=== PATIENT | male | born 1985 | race American Indian/Alaskan Native ===

== ENCOUNTER → 2020-08-11 13:16 | Outpatient (CLI) | payer BC, OTHER, SELFPAY ==
--- NOTE | 2020-08-11 | DI.CT.S_ITS ---
PROCEDURE: CT ABDOMEN PELVIS WO CON INDICATIONS: Hematuria, unspecified TECHNIQUE: Noncontrast 5 mm thick sections acquired from the diaphragms to the symphysis. 5 mm coronal and sagittal reformats were then performed. For radiation dose reduction, the following was used: automated exposure control, adjustment of mA and/or kV according to patient size. COMPARISON: None. FINDINGS: Image quality: Excellent. ABDOMEN: Lung bases: Lung bases are clear. Heart size is normal. Solid organs: Liver is normal in size. Numerous hepatic cysts are present consistent with the clinical history of hepatic renal polycystic syndrome. Gallbladder appears normal . Pancreas is normal in contours. Spleen is normal in size. No adrenal nodules. Kidneys are normal in size, without hydronephrosis or nephrolithiasis. Peritoneum and bowel: Unenhanced bowel loops demonstrate normal wall thickness and caliber. No free fluid or air. Nodes and vessels: No retroperitoneal or mesenteric adenopathy by size criteria. Aorta and inferior vena cava are normal in caliber. Miscellaneous: No ventral hernias. PELVIS: Genitourinary: Bladder wall thickness is normal. Miscellaneous: No inguinal hernias or adenopathy. Bones: No suspicious bony lesions. No vertebral body compression fractures. IMPRESSION: Multiple renal and hepatic cysts, none of which appear complex. No hydronephrosis or nephrolithiasis is seen. A source of hematuria is not found. Dictated by: Harvey Hubbard M.D. on 08/11/2020 at 13:57 Approved by: Harvey Hubbard M.D. on 08/11/2020 at 13:58
== END ==
PROVIDERS: Referring Provider Specialist; Visit Provider Specialist
DX: R31.9 Hematuria, unspecified (principal); N28.1 Cyst of kidney, acquired; K76.89 Other specified diseases of liver
CPT/HCPCS: 74176

== ENCOUNTER → 2020-08-26 09:48 | Outpatient (CLI) | payer BC, OTHER, SELFPAY ==
[2020-08-26 10:28] LABS: Cholesterol 203 mg/dL (140-199); HDL Cholesterol 25 mg/dL (40-60); Triglycerides 444 mg/dL (35-150)
[2020-08-26 10:29] LABS: BUN Creatinine Ratio 17.6 (6-22); Blood Urea Nitrogen 19 mg/dL (9-20); Carbon Dioxide 26 mmol/L (22-32); Chloride 104 mmol/L (98-107); Estimated Glomerular Filt Rate > 60.0 mL/min (>60); Glucose 95 mg/dL (70-100); HEMOLYSIS < 15 (0-50); Potassium 4.5 mmol/L (3.4-5.1); Sodium 138 mmol/L (137-145)
[2020-08-26 10:30] LABS: Hemoglobin A1C% w Est Avg Glu 5.4 % (4.0-6.0)
[2020-08-26 11:26] LABS: TSH w/ Reflex to FT4 1.04 uIU/mL (0.47-4.68)
== END ==
PROVIDERS: Specialist; PCP Family Medicine; Referring Provider Family Medicine; Visit Provider Family Medicine
DX: I10 Essential (primary) hypertension (principal); F41.8 Other specified anxiety disorders; R73.9 Hyperglycemia, unspecified; R94.4 Abnormal results of kidney function studies
CPT/HCPCS: 36415; 80048; 80061; 83036; 84443

== ENCOUNTER → 2020-09-08 09:01 | Outpatient (CLI) | payer BC, OTHER, SELFPAY ==
[2020-09-08 09:24] LABS: COVID19 -Nasal RAPID Negative (Negative)
== END ==
PROVIDERS: PCP Family Medicine; Visit Provider Specialist
DX: Z20.822 Contact with and (suspected) exposure to COVID-19 (principal)
CPT/HCPCS: 87635; C9803

== ENCOUNTER 2020-09-10 06:21 | Day surgery (SDC) | payer BC, OTHER, SELFPAY ==
[2020-09-10] VITALS (13 sets, daily range): BP systolic 91–122; BP diastolic 46–87; PULSE 46–78; RESP 12–18; TEMP 36.4–37.1; O2SAT 94–98; BMI 35.5
--- NOTE | 2020-09-10 | PATH_ITS ---
[facility] Accession Number: [id number] . 01 Material submitted: . bladder - LEFT BLADDER FLOOR . 02 Diagnosis: Left Bladder Floor, TURBT: Papillary urothelial carcinoma, low grade, noninvasive; see cancer case summary. . . CANCER CASE SUMMARY - URINARY BLADDER . Procedure: Transurethral resection of bladder (TURBT). Tumor site: Left bladder floor. Histologic type: Papillary urothelial carcinoma, noninvasive. Histologic grade: Low grade. Tumor configuration: Papillary. Muscularis propria presence: No muscularis propria identified. Lymphovascular invasion: Not identified. Tumor extension: Noninvasive papillary carcinoma. MRV 09/15/2020 1303 Local . 02 Comment: As part of routine quality assurance calibrator, Dr. Baxter has reviewed this case and agrees with the diagnosis of low-grade papillary urothelial carcinoma. . 02 Electronically signed: . Gutierrez Gonzalez MD, PhD, Pathologist NPI- [id number] . 01 Gross description: . The specimen is received in formalin, labeled left bladder floor and consists of three haro-pink to haro-white fragments of soft tissue measuring 0.7 x 0.6 x 0.2 cm in aggregate. The specimen is entirely submitted in cassette A1. ([id number]) /MRV 09/14/2020 1604 Local . 02 Pathologist provided ICD-10: C67.9 . 02 CPT . 975007 Performed at: 01 [facility] [address] [facility], [place], [place] [id number] MD Lorne Canales MD Phone: [phone] Performed at: 02 [facility] [address] [place], [place] [id number] MD Carolyn Pabon MD Phone: [phone]
--- NOTE | 2020-09-10 07:28 | PM.PREOP ---
Pre-operative Note Interval Note History & Physical reviewed/Exam performed by Physician: Yes Changes to H&P: No
--- NOTE | 2020-09-10 07:36 | SUR.OPER ---
Lithotomy on padded OR bed, head on pillow, arms secured on padded arm boards at <90 degrees abduction. Legs secured in padded yellow fins stirrups.
[2020-09-10] MEDS: LACTATED RINGERS 500 ML 25 ML IV (07:42)
[2020-09-10] MEDS: CEFAZOLIN VIAL 3 GM in SODIUM CHLORIDE 0.9% 100 ML 200 ML IV (07:53)
[2020-09-10] MEDS: BELLADONNA/OPIUM SUPPOSITORIES 1 EACH PR (08:06)
[2020-09-10] MEDS: WATER FOR INJECTION,STERILE 20 ML, mitoMYcin 20 MG INTRAVESIC (08:12)
--- NOTE | 2020-09-10 08:29 | P.OP_ITS ---
Operative Date/Time/Diagnoses Date of procedure: 09/10/20 Time of procedure: 08:29 Pre-op diagnosis: Bladder neoplasm Post-op diagnosis: same Procedure & Clinicians Procedure: 1. cystoscopy and transurethral resection of bladder tumor 2. cystoscopy and instillation mitomycin-C (20 mg) Same procedure as scheduled: Yes Indications: papillary neoplasm left bladder floor Surgeon: Genia Hu Click Yes if Unassisted: Yes Anesthesia Type: General Operative Notes Findings: 1. Urethra -normal 2. external sphincter - coapted 3. prostate - 3+ cm length with mild lateral lobe hyperplasia. 4. bladder- trace trabeculation. Normal ureteral orifices bilaterally. There is a multi lobular papillary neoplasm located at the left posterior- lateral floor. Closure Type: not applicable Specimen(s): other ( bladder neoplasm) Applied: catheter ( 22 Portuguese silicone catheter) Estimated Blood Loss (mL): 0 Blood products transfused: none Procedure in detail: the patient was positioned supine and administered general anesthesia. The lower abdomen, genitalia, and groin were prepped and draped in sterile fashion. The resectoscope was then advanced into urethra meatus and advanced proximally with the findings as described above. The resectoscope was then fitted with cold cup biopsy and the tumor was excised using cold resection. The samples were submitted to pathology for routine gross microscopic examination. The resectoscope was then fitted with the button electrode and the bladder base and periphery were cauterized for hemostasis. The bladder was then left partially filled resectoscope was removed. A 22 Portuguese silicone Christensen catheter was then inserted, the balloon inflated 10 cc, and the bladder contents drained. 20 mg of mitomycin C were then instilled into the bladder and a catheter plug was left in place for anticipated 2 hour retention and recovery. Complications: none Post-operative Condition: stable Disposition: PACU Plan for aftercare: Discharge home
[2020-09-10] MEDS: fentaNYL 100 MCG/2 ML INJ IV ×5 (08:34→09:14)
[2020-09-10] MEDS: OXYCODONE/ACETAMINOPHEN 5/325 TABLET 1 TAB PO ×2 (08:42→09:09)
--- NOTE | 2020-09-10 11:47 | SUR.PHASEII ---
pt turned according to schedule for mitomycin. morgan drained and placed in yellow chemo container after it was removed. pt aware that may experience pain with urination and to drink plenty of fluids. will contact MD if any issues. 200 ml of urine was removed with morgan. PIV removed without issue. d/c instructions provided to pt. pt left in w/c with RN escort to car with his .
== END 2020-09-10 10:47 | disposition home or self-care (01) ==
PROVIDERS: PCP Family Medicine; Referring Provider Family Medicine; Visit Provider Specialist
PROC: 0TBB8ZZ Excision of Bladder, Via Natural or Artificial Opening Endoscopic (ICD-10-PCS; CPT 52234; principal; 2020-09-10 07:45)
DX: C67.9 Malignant neoplasm of bladder, unspecified (principal); I10 Essential (primary) hypertension; N40.0 Benign prostatic hyperplasia without lower urinary tract symptoms; F32.9 Major depressive disorder, single episode, unspecified; F41.9 Anxiety disorder, unspecified; E78.5 Hyperlipidemia, unspecified
CPT/HCPCS: 52234; 82962; J0690; J1100; J2250; J2405; J2704; J3010; J9280

== ENCOUNTER 2020-10-26 18:50 | Emergency (ER) | payer BC, OTHER, SELFPAY ==
[2020-10-26 19:06] VITALS: BP 138/85; PULSE 98; RESP 18; TEMP 36; O2SAT 100; BMI 33.2
[2020-10-26 20:03] LABS: Appearance Urine UA SL CLOUDY; Bilirubin Urine UA NEGATIVE (NEGATIVE); Color Urine UA YELLOW; Glucose Urine UA NEGATIVE (Negative); Ketones Urine UA NEGATIVE (NEGATIVE); Leukocyte Esterase Urine UA TRACE (NEGATIVE); Nitrite Urine UA NEGATIVE (Negative); Occult Blood Urine UA 3+ (Negative); Protein Urine UA 2+ (Negative); Specific Gravity Urine UA 1.025 (1.000-1.035); Urobilinogen Urine UA 0.2 E.U./dL (0.2)
[2020-10-26 20:04] LABS: Add Manual Diff / Slide Review NO; Basophils Absolute Auto 0 /uL (0-100); Basophils Percent Auto 0.5 % (0-2); Eosinophils Absolute Auto 200 /uL (0-450); Eosinophils Percent Auto 2.5 % (2-4); Hematocrit 44.1 % (41-53); Hemoglobin 14.9 g/dL (13.5-17.5); Lymphocytes Absolute Auto 2900 /uL (1100-4500); Lymphocytes Percent Auto 29.7 % (25-40); Mean Corpuscular HGB Conc 33.9 % (30-36); Mean Corpuscular Hemoglobin 29.6 PG (26-34); Mean Corpuscular Volume 87.5 fL (80-100); Monocytes Absolute Auto 500 /uL (0-900); Monocytes Percent Auto 5.1 % (3-14); Neutrophils Absolute Auto 6200 /uL (1500-7000); Neutrophils Percent Auto 62.2 % (50-75); Platelet Count 299 X10^3/uL (150-400); Red Blood Cell Count 5.04 X10^6/uL (4.5-5.9); White Blood Cell Count 9.9 X10^3/uL (4.5-11.0)
[2020-10-26] MEDS: SODIUM CHLORIDE 0.9% 1,000 ML 1000 ML IV (20:04)
[2020-10-26] MEDS: KETOROLAC 30 MG/ML VIAL 15 MG IV (20:04)
[2020-10-26 20:16] LABS: Bacteria Urine Occasional (0-1); Culture Indicated Urine Specimen Cultured; Mucus Urine 1+ (Negative); RBC Urine >100/HPF (0-5/HPF); Squamous Epithelial Cell Urine 1-5 /HPF (0-5/HPF); WBC Urine 5-10/HPF (0-5/HPF)
[2020-10-26 20:17] LABS: Alanine Aminotransferase 23 IU/L (<50); Albumin 4.5 g/dL (3.5-5.0); Albumin Globulin Ratio 1.5 (1.0-2.8); Alkaline Phosphatase 72 U/L (38-126); Aspartate Aminotransferase 25 IU/L (17-59); BUN Creatinine Ratio 15.4 (6-22); Bilirubin Total 0.3 mg/dL (0.2-1.3); Blood Urea Nitrogen 20 mg/dL (9-20); Calcium 9.2 mg/dL (8.4-10.2); Carbon Dioxide 21 mmol/L (22-32); Chloride 106 mmol/L (98-107); Estimated Glomerular Filt Rate > 60.0 mL/min (>60); Globulin 3.1 g/dL (1.7-4.1); Glucose 136 mg/dL (70-100); HEMOLYSIS < 15 (0-50); Potassium 4.3 mmol/L (3.4-5.1); Sodium 139 mmol/L (137-145); Total Protein 7.6 g/dL (6.3-8.2)
--- NOTE | 2020-10-26 20:28 | PC.NURSE ---
Bladder and urethra pain when urinating; recent bladder cancer.
--- NOTE | 2020-10-26 21:18 | ED.GENADULT ---
HPI - General Adult General Chief complaint: Urogenital-Male Stated complaint: SEVERE BLADDER PAIN Time Seen by Provider: 10/26/20 19:36 Source: patient Mode of arrival: Ambulatory Limitations: no limitations History of Present Illness HPI narrative: 35-year-old gentleman with a history of polycystic kidney disease, high blood pressure and is 6 weeks post TUR bladder cancer removal. Over last 2 weeks he has been having increasing dysuria and urgency. He was seen at an urgent care clinic started on Septra urine culture was done and returns unremarkable. He was contacted and told he could stop his antibiotics. Continues to have increasing dysuria, urgency and today is noticing hematuria and small bits of tissue debris in his urine. He describes his bladder as ?holding a hot volume of acid?. He does not describe fevers, chills, no vomiting or diarrhea. Does not describe flank pain. Related Data Home Medications Medication Instructions Recorded Confirmed multivitamin 1 tab PO DAILY 09/10/20 10/14/20 omega-3 fatty acids 1,000 mg PO DAILY 09/10/20 10/14/20 Previous Rx's Medication Instructions Recorded bupropion HCl 100 mg tablet,12 hr 100 mg PO BID #180 ea 08/26/20 sustained-release lisinopril 20 mg tablet 20 mg PO DAILY #90 tab 08/26/20 atomoxetine 40 mg capsule 40 mg PO DAILY #90 cap 10/14/20 trazodone 50 mg tablet 100 mg PO BEDTIME PRN #120 tab 10/14/20 oxybutynin chloride 10 mg PO DAILY #30 tab 10/26/20 oxycodone-acetaminophen 1 tab PO Q6H PRN #14 tab 10/26/20 phenazopyridine [Pyridium] 200 mg PO TID #6 tab 10/26/20 Allergies Allergy/AdvReac Type Severity Reaction Status Date / Time methylphenidate AdvReac Unknown Feel like Verified 10/14/20 13:48 [From [email or web address]] a dharmesh Review of Systems Review of Systems Narrative: Remainder of complete review of systems is otherwise unremarkable except for that included in the HPI. Patient History Medical History ADHD (~2004) Ankle pain (~2005) Autosomal dominant polycystic kidney disease Bone spur of right ankle Chicken pox (~1992) Chronic back pain (~2005) Depression Depression with anxiety (~2004) Foot pain (~2003) Former smoker Headache (~2004) Hearing loss (~2004) Hematuria Hyperlipidemia Hypertension (~2015) Malignant neoplasm of bladder Migraines (~2004) Polycystic kidney, adult type (~2006) Shoulder pain (~2013) Sleep apnea Vertigo (~2004) Surgical History Anesthesia History of ankle surgery History of eyelid surgery (~2010) Family History Father PKD (polycystic kidney disease) Mother Hypertension Sister PKD (polycystic kidney disease) Sister PKD (polycystic kidney disease) Grandmother Sepsis Grandmother PKD (polycystic kidney disease) Social History marital status: household members: spouse Smoking Status: Former smoker alcohol intake: never caffeine: Yes Smoking Status: Former smoker alcohol intake frequency: holidays/special occasions only Substance Use Type: does not use Exam Narrative Exam Narrative: General: Healthy appearing, in no acute distress. Able to give a complete and coherent history. Well-nourished well-developed HEENT: Moist mucous membranes, normal sclera with reactive pupils, Neck: supple Respiratory: Lungs are clear to auscultation, no wheezing no rales no rhonchi. Full and symmetrical air movement Cardiac: Regular rate and rhythm no murmurs no bruits Abdomen: Soft, suprapubic tenderness, no rebound or guarding, good bowel tones, no flank pain Skin: Warm and dry, no rashes Neurologic: Grossly neurologically intact with no obvious asymmetries or abnormalities Extremities: No trauma, well perfused Psych: Cooperative, appropriate insight and affect Initial Vital Signs Initial Vital Signs: Vital Signs Temperature 96.8 F L 10/26/20 19:06 Pulse Rate 98 H 10/26/20 19:06 Respiratory Rate 18 10/26/20 19:06 Blood Pressure 138/85 10/26/20 19:06 Pulse Oximetry 100 10/26/20 19:06 Course Orders Ordered: ED Orders 10/26/20 19:46 Urinalysis and Microscopic Stat Urine Culture Stat 10/26/20 19:56 Complete Blood Count AUTO DIFF Stat Comprehensive Metabolic Panel Stat Oxybutynin Chloride (Oxybutynin 5 Mg Er Tab) 10 mg PO DAILY LIEN Discontinued Medications Sodium Chloride (Normal Saline 0.9%) 1,000 mls @ 1,000 mls/hr IV BOLUS ONE Stop: 10/26/20 20:42 Last Infusion: 10/26/20 21:05 Dose: 0 mls/hr Documented by: Admin: 10/26/20 20:04 Dose: 1,000 mls/hr Documented by: NUPUR Ketorolac Tromethamine (Ketorolac 30 Mg/Ml Vial) 15 mg IV NOW ONE Stop: 10/26/20 19:44 Last Admin: 10/26/20 20:04 Dose: 15 mg Documented by: NUPUR Oxycodone/Acetaminophen (Oxycodone/Apap 5/325 Prepack) 1 bottle MISC SEEINSTR ONE Stop: 10/26/20 21:45 Phenazopyridine HCl (Phenazopyridine 100 Mg Tablet) 200 mg PO NOW ONE Stop: 10/26/20 21:45 Vital Signs Vital signs: Vital Signs - 8 hr 10/26/20 19:06 Temperature 96.8 F L Pulse Rate 98 H Respiratory Rate 18 Blood Pressure 138/85 Pulse Oximetry 100 Medical Decision Making Medical Records Medical records reviewed: Yes I reviewed the patient's medical records. Lab Data Lab results reviewed: Yes I reviewed the patient's lab results. Result diagrams: 10/26/20 19:56 10/26/20 19:56 Labs: Lab Results 10/26/20 10/26/20 10/26/20 Range/Units 19:46 19:56 19:56 WBC 9.9 (4.5-11.0) X10^3/uL RBC 5.04 (4.5-5.9) X10^6/uL Hgb 14.9 (13.5-17.5) g/dL Hct 44.1 (41-53) % MCV 87.5 (80-100) fL MCH 29.6 (26-34) PG MCHC 33.9 (30-36) % RDW 13.0 (11.6-14.8) % Plt Count 299 (150-400) X10^3/uL Neut % (Auto) 62.2 (50-75) % Lymph % (Auto) 29.7 (25-40) % [place] % (Auto) 5.1 (3-14) % Eos % (Auto) 2.5 (2-4) % Baso % (Auto) 0.5 (0-2) % Neut # (Auto) 6200 (2466-2227) /uL Lymph # (Auto) 2900 (6859-1099) /uL [place] # (Auto) 500 (0-900) /uL Eos # (Auto) 200 (0-450) /uL Baso # (Auto) 0 (0-100) /uL Sodium 139 (137-145) mmol/L Potassium 4.3 (3.4-5.1) mmol/L Chloride 106 (98-107) mmol/L Carbon Dioxide 21 L (22-32) mmol/L BUN 20 (9-20) mg/dL Creatinine 1.30 H (0.66-1.25) mg/dL Estimated GFR > 60.0 (>60) mL/min BUN/Creatinine Ratio 15.4 (6-22) Glucose 136 H (70-100) mg/dL Calcium 9.2 (8.4-10.2) mg/dL Total Bilirubin 0.3 (0.2-1.3) mg/dL AST 25 (17-59) IU/L ALT 23 (<50) IU/L Alkaline Phosphatase 72 (38-126) U/L Total Protein 7.6 (6.3-8.2) g/dL Albumin 4.5 (3.5-5.0) g/dL Globulin 3.1 (1.7-4.1) g/dL Albumin/Globulin Ratio 1.5 (1.0-2.8) Urine Color Yellow Urine Appearance Sl cloudy Urine pH 6.0 (4.5-8.0) Ur Specific [place]ahan 1.025 (1.000-1.035) Urine Protein 2+ H (Negative) Urine Glucose (UA) Negative (Negative) g/dL Urine Ketones Negative (NEGATIVE) Urine Occult Blood 3+ H (Negative) Urine Nitrate Negative (Negative) Urine Bilirubin Negative (NEGATIVE) Urine Urobilinogen 0.2 (0.2) E.U./dL Ur Leukocyte Esterase Trace H (NEGATIVE) Urine RBC >100/hpf H (0-5/HPF) Urine WBC 5-10/hpf H (0-5/HPF) Ur Squamous Epith Cells 1-5 /hpf (0-5/HPF) Urine Bacteria Occasional (0-1) (None) Urine Mucus 1+ H (Negative) Ur Culture Indicated? Specimen cultured MDM Narrative Medical decision making narrative: 35-year-old gentleman with continued dysuria, no hematuria and tissue being passed. On 09/10 he had cystoscopic surgery with removal of a multi lobular papillary neoplasm located at the left posterior- lateral floor. Recent urinalysis did not culture a urinary tract infection and today's urinalysis shows hematuria only. Slight increase in creatinine from 1-1.3. Spoke with Dr. Tobin, urologist on-call. Given the lack of urinary tract infection, no evidence of sepsis his recommendation was to try an anticholinergic to help with the bladder spasms such as oxybutynin and felt that 3 days of Pyridium trial would be acceptable. His recommendation was to not do any additional imaging studies at this point an ask the patient to follow-up with Dr. Hu by phone tomorrow morning. Discharge Plan Departure Patient Disposition: Home Clinical Impression: Spastic dysuria Hematuria Qualifiers: Hematuria type: gross Qualified Code(s): R31.0 - Gross hematuria Bladder cancer Qualifiers: Bladder location: posterior wall Qualified Code(s): C67.4 - Malignant neoplasm of posterior wall of bladder Instructions: DI for Dysuria -- Adult Activity Restrictions/Additional Instructions: Thank you for coming in today Your lab work was reassuring. There is no evidence of infection. Your urine sample does show blood but does not show white blood cells or bacteria. As you are already on a 7 day course of Septra, please go ahead and complete this. I have spoken with Dr. Tobin, urology on-call for Dr. Hu. He recommended trying oxybutynin daily as an anti spasmodic, agreed that trying 3 days of pretty am to help control the pain was also reasonable and recommended follow-up with Dr. Hu as soon as possible. I will also give you a brief course of Percocet to help with the severe pain so you are at least able to get some sleep All prescriptions have been electronically sent to [facility] in [place] If you find that you can not void at all please feel free to return to the ER. Please contact Dr. Hu is office tomorrow. Prescriptions: New oxybutynin chloride 10 mg tablet extended release 24hr 10 mg PO DAILY Qty: 30 RF: 0 phenazopyridine [Pyridium] 200 mg tablet 200 mg PO TID Qty: 6 RF: 0 oxycodone-acetaminophen 5-325 mg tablet 1 tab PO Q6H PRN (Reason: pain) Qty: 14 RF: 0 No Action lisinopril 20 mg tablet 20 mg PO DAILY Qty: 90 RF: 3 bupropion HCl [Wellbutrin SR] 100 mg tablet sustained-release 12 hr 100 mg PO BID Qty: 180 RF: 0 atomoxetine 40 mg capsule 40 mg PO DAILY Qty: 90 RF: 3 trazodone 50 mg tablet 100 mg PO BEDTIME PRN (Reason: insomnia) Qty: 120 RF: 3 multivitamin Tablet 1 tab PO DAILY RF: 0 omega-3 fatty acids Capsule 1,000 mg PO DAILY RF: 0 Referrals: Hussein Navarro MD [Primary Care Provider] - Genia Hu MD [Physician] -
[2020-10-26] MEDS: OXYCODONE/APAP 5/325 PREPACK 1 BOTTLE MISC (22:09)
[2020-10-26] MEDS: PHENAZOPYRIDINE 100 MG TABLET 200 MG PO (22:10)
[2020-10-26] MEDS: OXYBUTYNIN 5 MG ER TAB 10 MG PO (22:10)
[2020-10-26 22:24] VITALS: BP 125/91; PULSE 80; RESP 20; TEMP 36.9; O2SAT 98
== END 2020-10-26 22:29 | disposition home or self-care (01) ==
PROVIDERS: Emergency Provider Emergency Medicine; PCP Family Medicine
DX: R30.0 Dysuria (principal); R31.0 Gross hematuria; C67.4 Malignant neoplasm of posterior wall of bladder
CPT/HCPCS: 36415; 51798; 80053; 81001; 81003; 85025; 87086; 96361; 96374; 99284; J1885

== ENCOUNTER → 2020-11-02 10:46 | Outpatient (CLI) | payer BC, OTHER, SELFPAY | PROVIDERS: PCP Family Medicine; Visit Provider Specialist | DX: N39.0 Urinary tract infection, site not specified (principal); R39.9 Unspecified symptoms and signs involving the genitourinary system; C67.4 Malignant neoplasm of posterior wall of bladder | CPT/HCPCS: 51798; 81002; 87086; 99214 ==

== ENCOUNTER → 2021-01-06 09:50 | Outpatient (CLI) | payer BC, OTHER, SELFPAY ==
[2021-01-06 13:37] LABS: COVID19 -Nasal RAPID Negative (Negative)
== END ==
PROVIDERS: PCP Family Medicine; Visit Provider Specialist
DX: Z20.822 Contact with and (suspected) exposure to COVID-19 (principal)
CPT/HCPCS: 87635; C9803

== ENCOUNTER 2021-01-07 10:29 | Day surgery (SDC) | payer BC, OTHER, SELFPAY ==
[2021-01-07] VITALS (10 sets, daily range): BP systolic 108–135; BP diastolic 79–93; PULSE 75–90; RESP 14–22; TEMP 36.1–36.7; O2SAT 94–98; BMI 34.9
--- NOTE | 2021-01-07 | PATH_ITS ---
[facility] Accession Number: [id number] . 01 Material submitted: . PART A: colon - CECUM PART B: small bowel - TERMINAL ILEUM PART C: colon - ASCENDING COLON PART D: body - 20 CM . 01 Clinical history: . SDC . 02 Diagnosis: A. Cecum: Colonic mucosa with no significant diagnostic abnormality. Negative for active inflammation, granulomas, dysplasia, and malignancy. . B. Terminal Ileum: Small bowel mucosa with focal active inflammation, non-specific. Negative for granulomas, dysplasia, and malignancy. . C. Ascending Colon: Colonic mucosa with no significant diagnostic abnormality. Negative for active inflammation, granulomas, dysplasia, and malignancy. . D. 20 cm: Colonic mucosa with no significant diagnostic abnormality. Negative for active inflammation, granulomas, dysplasia, and malignancy. [facility] 01/11/2021 1743 Local . 02 Electronically signed: . Jessica Baxter MD, Pathologist NPI- [id number] . 01 Gross description: . Part A: CECUM: Received in formalin are 4 fragment(s) of haro, soft tissue measuring 0.4 x 0.3 x 0.2 cm to 0.3 x 0.2 x 0.2 cm submitted entirely in 1 cassette(s) Part B: TERMINAL ILEUM: Received in formalin are multiple fragment(s) of haro, soft tissue measuring 2.1 x 0.4 x 0.1 cm in aggregate submitted entirely in 1 cassette(s) Part C: ASCENDING COLON: Received in formalin are multiple fragment(s) of haro, soft tissue measuring 1.6 x 0.6 x 0.2 cm in aggregate submitted entirely in 1 cassette(s) Part D: 20 CM: Received in formalin are 2 fragment(s) of haro, soft tissue measuring 0.3 x 0.3 x 0.2 cm to 0.3 x 0.1 x 0.1 cm submitted entirely in 1 cassette(s) /[facility] 01/08/2021 0739 Local . 02 Pathologist provided ICD-10: K62.5 . 02 CPT . 380973, 128908, 285234, [id number] Performed at: 01 [facility] [address] [place] [address], [place], [place] [id number] MD Lorne Canales MD Phone: [phone] Performed at: [address] [facility] [address] [place], [place] [id number] MD Carolyn Pabon MD Phone: [phone]
[2021-01-07] MEDS: LACTATED RINGERS 1,000 ML 42 ML IV (10:47)
--- NOTE | 2021-01-07 11:01 | PM.PREOP ---
Pre-operative Note COVID-19 COVID-19 status: Negative Result date/Date tested (Pos, Neg/Pending): 01/06/21 Interval Note History & Physical reviewed/Exam performed by Physician: Yes Changes to H&P: No ASA Class (for procedural sedation): II
[2021-01-07] MEDS: fentaNYL 250 MCG/5 ML INJ IV (11:05)
[2021-01-07] MEDS: MIDAZOLAM 5 MG/5 ML VIAL IV (11:06)
--- NOTE | 2021-01-07 11:38 | P.OP.ENDO_ITS ---
Operative Date/Time/Diagnoses Date of procedure: 01/06/21 Time of procedure: 11:39 Pre-op diagnosis: Abnormal CT with inflammation of the cecum and ascending colon. Chronic diarrhea. Blood per rectum. He has never had a colonoscopy. Post-op diagnosis: same (One tiny polyp like lesion removed. Random biopsies taken of the terminal ileum the cecum and the ascending colon near the flexure. Colon did not appear to be particularly inflamed. Stool spent for study.) Procedure & Clinicians Study performed: Colonoscopy with cold biopsy. Indications: See preop diagnosis Procedure Notes Procedure in detail: The patient was placed in the left lateral decubitus position and underwent IV sedation directed by the surgeon consisting of fentanyl and Versed. Digital exam was unremarkable. Prostate was not palpably enlarged.. The scope was inserted and advanced through the rectum into the sigm oid, descending, transverse, and ascending colon. Pressure was applied we made our way into the cecum.. The cecum was reached identified by the ileocecal valve and the appendiceal opening. The ileocecal valve was successfully cannulated. The terminal ileum was normal in appearance. Even so because of his history I took random biopsies of the terminal ileum. I also did random biopsies of the cecum and ascending colon. The scope was gradually brought out. One Polyp was found at 20 cm from the anal verge. This was biopsied and completely removed.. The scope ultimately was retroflexed in the rectum. The appearance was normal in appearance. The scope was removed and the patient tolerated the procedure well. Prep was very good. Scope withdrawal time: 7 minutes(8 total) Sedation minutes: 28 Findings: polyp (Very small. May not be pre cancers.) Specimen(s): other (Polyps. Random biopsies of the terminal ileum/cecum/ascending colon) Complications: none Post-procedure Follow up: as needed Disposition: PACU
[2021-01-07 13:11] LABS: Adenovirus F 40/41 Not Detected (Not Detect); Astrovirus Not Detected (Not Detect); Campylobacter Not Detected (Not Detect); Clostridium difficile toxin AB Not Detected (Not Detect); Cryptosporidium Not Detected (Not Detect); Cyclospora cayetanensis Not Detected (Not Detect); Entamoeba histolytica Not Detected (Not Detect); Enteroaggregative E.coli Not Detected (Not Detect); Enteropathogenic E.coli Detected (Not Detect); Enterotoxigenic E.coli It/st Not Detected (Not Detect); Giardia lamblia Not Detected (Not Detect); Norovirus GI/GII Not Detected (Not Detect); Plesiomonsa shigelloides Not Detected (Not Detect); Rotavirus A Not Detected (Not Detect); Salmonella Not Detected (Not Detect); Sapovirus Not Detected (Not Detect); Shiga-like toxin-prod E.coli Not Detected (Not Detect); Shigella/Enteroinvasive E.coli Not Detected (Not Detect); Vibrio Not Detected (Not Detect); Vibrio cholerae Not Detected (Not Detect); Yersinia enterocolitica Not Detected (Not Detect)
== END 2021-01-07 13:01 | disposition home or self-care (01) ==
PROVIDERS: PCP Family Medicine; Referring Provider Specialist; Visit Provider Specialist
PROC: 0DJD8ZZ Inspection of Lower Intestinal Tract, Via Natural or Artificial Opening Endoscopic (ICD-10-PCS; CPT 45378; principal; 2021-01-07 11:30)
DX: K62.5 Hemorrhage of anus and rectum (principal); K52.9 Noninfective gastroenteritis and colitis, unspecified
CPT/HCPCS: 45380; 87177; 87507; 99152; 99153; J2250; J3010

== ENCOUNTER → 2021-03-16 17:22 | Outpatient (CLI) | payer BC, OTHER, SELFPAY ==
--- NOTE | 2021-03-16 17:24 | DI.MRI.S_ITS ---
PROCEDURE: MR HEAD/BRAIN WO CON INDICATIONS: persistent vertigo TECHNIQUE: Non-contrast axial T1 spin echo, axial T2 fast spin echo, sagittal and axial FLAIR, coronal T2 fast spin echo, axial gradient echo, axial diffusion and ADC through the brain. COMPARISON: None. FINDINGS: Image quality: Excellent. CSF spaces: Ventricles appear symmetric in size and shape. Basal cisterns are patent. No extra-axial fluid collections. Brain: No intracranial bleeds or mass effects. There is cerebral volume loss for age. There are periventricular and deep white matter chronic small vessel ischemic changes. Brainstem appears normal. Diffusion-weighted images show no acute ischemic insults. No chronic ischemic insults. Normal intravascular flow voids are present. In this patient with this given history, scrutiny is given to cerebellopontine angle cisterns and to the internal auditory canals. To the limits of this standard protocol study, no masses can be seen within these regions. Skull and face: Calvarial bone marrow is normal in signal. Orbits are normal. Sinuses: Sinuses and mastoids are clear. There is mild rightward nasal septal deviation seen. IMPRESSION: Unremarkable examination, without an imaging explanation found for the patient's presenting symptoms. To the limits of this standard protocol, noncontrast study, no masses can be seen within the internal auditory canals or the cerebellopontine angle cisterns. No findings of acute or subacute infarction can be seen. Dictated by: Graham Alvarado M.D. on 03/16/2021 at 17:25 Approved by: Graham Alvarado M.D. on 03/16/2021 at 17:27
== END ==
PROVIDERS: PCP Family Medicine; Referring Provider Family Medicine; Visit Provider Family Medicine
DX: R42 Dizziness and giddiness (principal); I95.1 Orthostatic hypotension
CPT/HCPCS: 70551